=== PATIENT | female | born 1950 | race Caucasian/White ===

== ENCOUNTER → 2017-01-28 | Outpatient (CLI) | payer OTHER ==
--- NOTE | 2017-01-30 08:54 | MM ---
Reason for exam: screening (asymptomatic). Last mammogram was performed 1 year and 2 months ago. History: Patient history of other cancer. Benign stereotactic core biopsy of the right breast, March 20, 2001. Benign stereotactic core biopsy of the right breast, March 20, 2001. 2 core biopsies of the right breast. Physical Findings: A clinical breast exam by your physician is recommended on an annual basis and results should be correlated with mammographic findings. MG Screening Mammo w CAD Bilateral CC and MLO view(s) were taken. Prior study comparison: November 21, 2015, bilateral MG screening mammo w CAD. September 16, 2007, bilateral diagnostic digital mammog. The breast tissue is heterogeneously dense. This may lower the sensitivity of mammography. Finding: There are typically benign diffuse/scattered calcifications. No suspicious abnormality. Post biopsy change right upper outer quadrant. No significant changes in finding since November 21, 2015 and September 16, 2007. ASSESSMENT: Benign, BI-RAD 2 RECOMMENDATION: Routine screening mammogram of both breasts in 1 year.
== END | disposition home or self-care (01) ==
LOC: RADMAMWWP 10:03
PROVIDERS: ATTEND Family Medicine
DX: Z12.31 Encounter for screening mammogram for malignant neoplasm of breast (principal)

== ENCOUNTER → 2018-02-03 | Outpatient (CLI) | payer MEDICARE ==
--- NOTE | 2018-02-04 14:38 | MM ---
Reason for exam: screening (asymptomatic). Last mammogram was performed 1 year ago. History: Patient history of other cancer. Benign stereotactic core biopsy of the right breast, March 20, 2001. Benign stereotactic core biopsy of the right breast, March 20, 2001. 2 core biopsies of the right breast. Physical Findings: A clinical breast exam by your physician is recommended on an annual basis and results should be correlated with mammographic findings. MG Screening Mammo w CAD Bilateral CC and MLO view(s) were taken. Prior study comparison: January 28, 2017, bilateral MG screening mammo w CAD. November 21, 2015, bilateral MG screening mammo w CAD. The breast tissue is heterogeneously dense. This may lower the sensitivity of mammography. Stable benign calcifications. There is no discrete abnormality. No significant changes when compared with prior studies. ASSESSMENT: Benign, BI-RAD 2 RECOMMENDATION: Routine screening mammogram of both breasts in 1 year.
== END | disposition home or self-care (01) ==
LOC: RADMAMWWP 09:04
PROVIDERS: ATTEND Family Medicine
DX: Z12.31 Encounter for screening mammogram for malignant neoplasm of breast (principal)
CPT/HCPCS: 77067

== ENCOUNTER → 2019-02-10 | Outpatient (CLI) | payer MEDICARE ==
--- NOTE | 2019-02-11 10:17 | MM ---
Reason for exam: screening (asymptomatic). Last mammogram was performed 1 year ago. History: Patient is postmenopausal and history of other cancer. Benign stereotactic core biopsy of the right breast, March 20, 2001. Benign stereotactic core biopsy of the right breast, March 20, 2001. 2 core biopsies of the right breast. Physical Findings: A clinical breast exam by your physician is recommended on an annual basis and results should be correlated with mammographic findings. MG Screening Mammo w CAD Bilateral CC and MLO view(s) were taken. Prior study comparison: February 03, 2018, bilateral MG screening mammo w CAD. January 28, 2017, bilateral MG screening mammo w CAD. The breast tissue is heterogeneously dense. This may lower the sensitivity of mammography. Focal asymmetry central right breast 10.7cm from nipple. This finding is changed when compared with previous exams. ASSESSMENT: Incomplete: need additional imaging evaluation, BI-RAD 0 RECOMMENDATION: Special view mammogram of the right breast. If lesion persists on supplemental views, image directed ultrasound is recommended. [facility] will attempt to contact patient to return for supplemental views and ultrasound if indicated.
== END | disposition home or self-care (01) ==
LOC: RADMAMWWP 09:57
PROVIDERS: ATTEND Family Medicine
DX: Z12.31 Encounter for screening mammogram for malignant neoplasm of breast (principal); R92.8 Other abnormal and inconclusive findings on diagnostic imaging of breast
CPT/HCPCS: 77067

== ENCOUNTER → 2019-02-18 | Outpatient (CLI) | payer MEDICARE ==
--- NOTE | 2019-02-19 08:24 | MM ---
Reason for exam: additional evaluation requested from abnormal screening. Last mammogram was performed less than 1 month ago. History: Patient is postmenopausal and history of other cancer. Benign stereotactic core biopsy of the right breast, March 20, 2001. Benign stereotactic core biopsy of the right breast, March 20, 2001. 2 core biopsies of the right breast. Physical Findings: Nurse did not find any significant physical abnormalities on exam. MG 3D Work Up W/Cad RT Spot compression CC, spot compression MLO, and ML view(s) were taken of the right breast. Prior study comparison: February 10, 2019, bilateral MG screening mammo w CAD. February 03, 2018, bilateral MG screening mammo w CAD. The breast tissue is heterogeneously dense. This may lower the sensitivity of mammography. Benign appearing calcifications in the right breast. The previously seen abnormality resolves on additional views and appears as fibroglandular tissue compatible with summation. Right biopsy marker. These results were verbally communicated with the patient and result sheet given to the patient on 02/18/19. ASSESSMENT: Benign, BI-RAD 2 RECOMMENDATION: Return to routine screening mammogram schedule for both breasts.
== END | disposition home or self-care (01) ==
LOC: RADMAMWWP 14:19
PROVIDERS: ATTEND Family Medicine
DX: R92.8 Other abnormal and inconclusive findings on diagnostic imaging of breast (principal)
CPT/HCPCS: 77065; G0279; 77061

== ENCOUNTER → 2020-05-27 | Outpatient (CLI) | payer MEDICARE ==
--- NOTE | 2020-05-30 12:26 | MM ---
Reason for exam: screening (asymptomatic). Last mammogram was performed 1 year and 3 months ago. History: Patient is postmenopausal and history of other cancer. Benign stereotactic core biopsy of the right breast, March 20, 2001. Benign stereotactic core biopsy of the right breast, March 20, 2001. 2 core biopsies of the right breast. Physical Findings: A clinical breast exam by your physician is recommended on an annual basis and results should be correlated with mammographic findings. MG Screening Mammo w CAD Bilateral CC and MLO view(s) were taken. Prior study comparison: February 18, 2019, right breast MG 3d work up w/cad RT. February 10, 2019, bilateral MG screening mammo w CAD. The breast tissue is heterogeneously dense. This may lower the sensitivity of mammography. Stable scattered calcifications. There is no discrete abnormality. No significant changes when compared with prior studies. ASSESSMENT: Benign, BI-RAD 2 RECOMMENDATION: Routine screening mammogram of both breasts in 1 year.
== END | disposition home or self-care (01) ==
LOC: RADMAMWWP 11:11
PROVIDERS: ATTEND Family Medicine
DX: Z12.31 Encounter for screening mammogram for malignant neoplasm of breast (principal); Z78.0 Asymptomatic menopausal state
CPT/HCPCS: 77067

== ENCOUNTER 2020-06-23 17:57 | Emergency (ER) | payer MEDICARE ==
[2020-06-23 18:17] VITALS: BP 128/91; PULSE 118; RESP 18; TEMP 97.4
[2020-06-23] MEDS ORDERED: MECLIZINE 12.5 MG TAB PO STA (18:57)
[2020-06-23] MEDS ORDERED: SODIUM CHLORIDE 0.9% 1,000 ML IV STA (18:57)
[2020-06-23] MEDS ORDERED: ONDANSETRON 4 MG/2 ML VIAL IVP STA (19:18)
--- NOTE | 2020-06-23 19:20 | ED ---
General Adult HPI - General Chief complaint: ENT Stated complaint: Dizziness Time Seen by Provider: 06/23/20 18:17 Source: patient, RN notes reviewed Mode of arrival: ambulatory Limitations: no limitations - History of Present Illness Initial comments: 69-year-old female with a past medical history of hyperlipidemia presents to the emergency room for a chief complaint of dizziness. Patient reports that this afternoon she started to get dizzy when she was standing in line. This happened just prior to arrival. States the room started spinning and she became nauseous. Patient states she then presented to the emergency room. Her dizziness resolved but she remained nauseous and shaky. She reports that this is happened to her in the past. It happened about 2 months ago and she was treated for an ear infectionPatient has no other complaints at this time including shortness of breath, chest pain, abdominal pain, nausea or vomiting, headache, or visual changes. - Related Data Allergies Allergy/AdvReac Type Severity Reaction Status Date / Time cortisone AdvReac Unknown Verified 06/23/20 18:10 Penicillins AdvReac Unknown Verified 06/23/20 18:10 Review of Systems ROS Statement: Those systems with pertinent positive or pertinent negative responses have been documented in the HPI. ROS Other: All systems not noted in ROS Statement are negative. Past Medical History Past Medical History: Hyperlipidemia, Vascular Disorder History of Any Multi-Drug Resistant Organisms: None Reported Past Surgical History: No Surgical Hx Reported Past Psychological History: No Psychological Hx Reported Smoking Status: Never smoker Past Alcohol Use History: None Reported Past Drug Use History: None Reported General Exam Limitations: no limitations General appearance: alert, in no apparent distress Head exam: Present: atraumatic, normocephalic, normal inspection Eye exam: Present: normal appearance, PERRL, EOMI. Absent: scleral icterus, conjunctival injection, periorbital swelling ENT exam: Present: normal exam, mucous membranes moist Neck exam: Present: normal inspection. Absent: tenderness, meningismus, lymphadenopathy Respiratory exam: Present: normal lung sounds bilaterally. Absent: respiratory distress, wheezes, rales, rhonchi, stridor Cardiovascular Exam: Present: regular rate, normal rhythm, normal heart sounds. Absent: systolic murmur, diastolic murmur, rubs, gallop, clicks GI/Abdominal exam: Present: soft, normal bowel sounds. Absent: distended, tenderness, guarding, rebound, rigid Neurological exam: Present: alert, oriented X3, normal gait (No antalgic gait) Expanded Patient oriented to: Present: person, place, time Speech: Present: fluid speech Cranial nerves: Tongue Deviation: Normal, Nystagmus: Normal, Facial Sensation: Normal Cerebellar function: Romberg: Normal Upper motor neuron: Pronator Drift: Normal Sensory exam: Upper Extremity Light Touch: Normal, Upper Extremity Pin Prick: Normal, Lower Extremity Light Touch: Normal, Lower Extremity Pin Prick: Normal Motor strength exam: RUE: 5, LUE: 5, RLE: 5, LLE: 5 Course Vital Signs 06/23/20 18:11 Temperature 97.4 F L Pulse Rate 118 H Respiratory 18 Rate Blood Pressure 128/91 O2 Sat by Pulse 98 Oximetry EKG Findings - EKG Comments: EKG Findings:: Normal sinus rhythm, ventricular rate 84, UT interval 172, QTC 486 Medical Decision Making - Medical Decision Making Vitals are stable. Initially patient tachycardic with a heart rate of 118 however likely related to anxiety. Heart rate improved to the 80s throughout her stay. Patient ambulatory on arrival. Gait is normal. CBC CMP is unremarkable. Patient does have some dehydration noted with a BUN to creatinine ratio of 22 and 1+ ketones in the urine, patient given fluids. CT brain was obtained which showed no acute process. Chest x-ray was unremarkable. Patient was given fluids Zofran and Antivert and did have significant improvement in symptoms. States she feels back to normal at this time. Patient states her right ear has been full on and off for the past couple months and her doctor thought this was related. We will refer her to ENT. We will also prescribe meclizine. She will return for any worsening symptoms which were discussed. - Lab Data Result diagrams: 06/23/20 19:26 06/23/20 19:26 Lab Results 06/23/20 06/23/20 06/23/20 Range/Units 19:26 19:26 19: WBC 11.2 H (3.8-10.6) k/uL RBC 4.75 (3.80-5.40) m/uL Hgb 14.6 (11.4-16.0) gm/dL Hct 45.3 (34.0-46.0) % MCV 95.4 (80.0-100.0) fL MCH 30.7 (25.0-35.0) pg MCHC 32.2 (31.0-37.0) g/dL RDW 13.2 (11.5-15.5) % Plt Count 309 (150-450) k/uL MPV 7.3 Neutrophils % 61 % Lymphocytes % 29 % Monocytes % 6 % Eosinophils % 2 % Basophils % 1 % Neutrophils # 6.8 (1.3-7.7) k/uL Lymphocytes # 3.3 (1.0-4.8) k/uL Monocytes # 0.6 (0-1.0) k/uL Eosinophils # 0.2 (0-0.7) k/uL Basophils # 0.1 (0-0.2) k/uL Sodium 139 (137-145) mmol/L Potassium 4.0 (3.5-5.1) mmol/L Chloride 104 (98-107) mmol/L Carbon Dioxide 23 (22-30) mmol/L Anion Gap 12 mmol/L BUN 19 H (7-17) mg/dL Creatinine 0.86 (0.52-1.04) mg/dL Est GFR (CKD-EPI)AfAm 82 (>60 ml/min/1.73 sqM) Est GFR (CKD-EPI)NonAf 71 (>60 ml/min/1.73 sqM) Glucose 125 H (74-99) mg/dL Calcium 9.6 (8.4-10.2) mg/dL Total Bilirubin 0.4 (0.2-1.3) mg/dL AST 35 (14-36) U/L ALT 27 (4-34) U/L Alkaline Phosphatase 109 (38-126) U/L Troponin I <0.012 (0.000-0.034) ng/mL Total Protein 7.6 (6.3-8.2) g/dL Albumin 4.4 (3.5-5.0) g/dL Urine Color Urine Appearance (Clear) Urine pH (5.0-8.0) Ur Specific [place] (1.001-1.035) Urine Protein (Negative) Urine Glucose (UA) (Negative) Urine Ketones (Negative) Urine Blood (Negative) Urine Nitrite (Negative) Urine Bilirubin (Negative) Urine Urobilinogen (<2.0) mg/dL Ur Leukocyte Esterase (Negative) 06/23/20 Range/Units 19:35 WBC (3.8-10.6) k/uL RBC (3.80-5.40) m/uL Hgb (11.4-16.0) gm/dL Hct (34.0-46.0) % MCV (80.0-100.0) fL MCH (25.0-35.0) pg MCHC (31.0-37.0) g/dL RDW (11.5-15.5) % Plt Count (150-450) k/uL MPV Neutrophils % % Lymphocytes % % Monocytes % % Eosinophils % % Basophils % % Neutrophils # (1.3-7.7) k/uL Lymphocytes # (1.0-4.8) k/uL Monocytes # (0-1.0) k/uL Eosinophils # (0-0.7) k/uL Basophils # (0-0.2) k/uL Sodium (137-145) mmol/L Potassium (3.5-5.1) mmol/L Chloride (98-107) mmol/L Carbon Dioxide (22-30) mmol/L Anion Gap mmol/L BUN (7-17) mg/dL Creatinine (0.52-1.04) mg/dL Est GFR (CKD-EPI)AfAm (>60 ml/min/1.73 sqM) Est GFR (CKD-EPI)NonAf (>60 ml/min/1.73 sqM) Glucose (74-99) mg/dL Calcium (8.4-10.2) mg/dL Total Bilirubin (0.2-1.3) mg/dL AST (14-36) U/L ALT (4-34) U/L Alkaline Phosphatase (38-126) U/L Troponin I (0.000-0.034) ng/mL Total Protein (6.3-8.2) g/dL Albumin (3.5-5.0) g/dL Urine Color Yellow Urine Appearance Clear (Clear) Urine pH 8.0 (5.0-8.0) Ur Specific [place] 1.019 (1.001-1.035) Urine Protein Trace H (Negative) Urine Glucose (UA) Negative (Negative) Urine Ketones 1+ H (Negative) Urine Blood Negative (Negative) Urine Nitrite Negative (Negative) Urine Bilirubin Negative (Negative) Urine Urobilinogen <2.0 (<2.0) mg/dL Ur Leukocyte Esterase Negative (Negative) Disposition Clinical Impression: Dizziness Disposition: HOME SELF-CARE Condition: Good Instructions (If sedation given, give patient instructions): Vertigo (ED) Additional Instructions: Please take Antivert over the next few days. Follow-up with your doctor as well as ENT. If you have any worsening symptoms return to the emergency room. Is patient prescribed a controlled substance at d/c from ED?: No Referrals: Jorge Diallo Jr, DO [Primary Care Provider] - 1-2 days Rommel Meredith DO [Doctor of Osteopathic Medicine] - 1-2 days Time of Disposition: 21:40
[2020-06-23 19:41] LABS: Basophils # (A) 0.1 k/uL (0-0.2); Basophils % (A) 1 %; Eosinophils # (A) 0.2 k/uL (0-0.7); Eosinophils % (A) 2 %; HCT 45.3 % (34.0-46.0); HGB 14.6 gm/dL (11.4-16.0); Lymphocytes # (A) 3.3 k/uL (1.0-4.8); Lymphocytes % (A) 29 %; MCH 30.7 pg (25.0-35.0); MCHC 32.2 g/dL (31.0-37.0); MCV 95.4 fL (80.0-100.0); Mean Platelet Volume 7.3; Monocytes # (A) 0.6 k/uL (0-1.0); Monocytes % (A) 6 %; Neutrophils # (A) 6.8 k/uL (1.3-7.7); Neutrophils % (A) 61 %; Platelet Count 309 k/uL (150-450); RBC 4.75 m/uL (3.80-5.40); RDW 13.2 % (11.5-15.5); WBC 11.2 k/uL (3.8-10.6)
[2020-06-23 19:47] LABS: Appearance,Urine Clear (Clear); Bilirubin,Urine Negative (Negative); Blood,Urine Negative (Negative); Color,Urine Yellow; Glucose,Urine (UA) Negative (Negative); Ketones,Urine 1+ (Negative); Leukocyte Esterase,Urine Negative (Negative); Nitrite,Urine Negative (Negative); Protein,Urine Trace (Negative); Specific Gravity,Urine 1.019 (1.001-1.035); Urobilinogen,Urine <2.0 mg/dL (<2.0)
[2020-06-23 19:49] LABS: Albumin 4.4 g/dL (3.5-5.0); Calcium 9.6 mg/dL (8.4-10.2); Total Bilirubin 0.4 mg/dL (0.2-1.3); Total Protein 7.6 g/dL (6.3-8.2)
--- NOTE | 2020-06-23 21:21 | CT ---
EXAMINATION: CT brain wo con DATE AND TIME: 06/23/2020 8:29 PM CLINICAL INDICATION: PHH; dizzy TECHNIQUE: Standard departmental protocol.; 1104.4; COMPARISON: None. FINDINGS: The calvarium is intact. There is no intracranial hemorrhage. There is no intracranial mass or mass effect. No definite new intra-axial or extra-axial attenuation defect. The paranasal sinuses, middle ear cavities, and mastoid sinus air cells are clear. The orbits are unremarkable. IMPRESSION: NO ACUTE PROCESS.
--- NOTE | 2020-06-23 21:23 | XR ---
EXAMINATION: XR chest 2V DATE AND TIME: 06/23/2020 8:27 PM CLINICAL INDICATION: PHH; dizzy TECHNIQUE: Departmental protocol COMPARISON: None FINDINGS: The lungs are clear. The pleural spaces are negative. The cardiac silhouette is not enlarged. The remainder of the mediastinal silhouette is unremarkable. The skeletal structures and soft tissues are negative for acute findings. IMPRESSION: No definite acute process.
== END 2020-06-23 21:56 | disposition home or self-care (01) ==
LOC: EC 17:57
DX: R42 Dizziness and giddiness (principal); E78.5 Hyperlipidemia, unspecified; Z88.0 Allergy status to penicillin
CPT/HCPCS: 36415; 93005; 80053; 84484; 85025; 81003; 71046; 70450; 99285; 96374; 96361; J2405

== ENCOUNTER → 2021-06-02 | Outpatient (CLI) | payer MEDICARE ==
--- NOTE | 2021-06-06 10:40 | MM ---
Reason for exam: screening (asymptomatic). Last mammogram was performed 1 year ago. History: Patient is postmenopausal and history of other cancer. Benign stereotactic core biopsy of the right breast, March 20, 2001. Benign stereotactic core biopsy of the right breast, March 20, 2001. 2 core biopsies of the right breast. Physical Findings: A clinical breast exam by your physician is recommended on an annual basis and results should be correlated with mammographic findings. MG Screening Mammo w CAD Bilateral CC and MLO view(s) were taken. Prior study comparison: May 27, 2020, bilateral MG screening mammo w CAD. February 18, 2019, right breast MG 3d work up w/cad RT. The breast tissue is heterogeneously dense. This may lower the sensitivity of mammography. There are benign appearing round calcifications bilaterally. Previous mammotome biopsy in the right breast. There is no discrete abnormality. ASSESSMENT: Benign, BI-RAD 2 RECOMMENDATION: Routine screening mammogram of both breasts in 1 year.
== END | disposition home or self-care (01) ==
LOC: RADMAMWWP 12:44
PROVIDERS: ATTEND Family Medicine
DX: Z12.31 Encounter for screening mammogram for malignant neoplasm of breast (principal); Z78.0 Asymptomatic menopausal state
CPT/HCPCS: 77067

== ENCOUNTER → 2022-06-21 | Outpatient (CLI) | payer MEDICARE ==
--- NOTE | 2022-06-22 08:11 | MM ---
Reason for Exam: Screening (asymptomatic). Last mammogram was performed 1 year(s) and 1 month(s) ago. Patient History: Menarche at age 13. First Full-Term at age 21. Postmenopausal. Other cancer. Core Biopsy on the Right side. Core Biopsy on the Right side. 03/20/2001, Benign Stereotactic Core Biopsy on the right side. 03/20/2001, Benign Stereotactic Core Biopsy on the right side. Risk Values: Jaylene 5 year model risk: 2.0%. NCI Lifetime model risk: 6.3%. Prior Study Comparison: 02/18/2019 Right Diagnostic Mammogram, [facility]. 05/27/2020 Bilateral Screening Mammogram, [facility]. 06/02/2021 Bilateral Screening Mammogram, [facility]. Tissue Density: The breast tissue is heterogeneously dense. This may lower the sensitivity of mammography. Findings: Analyzed By CAD. Benign-appearing calcifications. There is no suspicious group of microcalcifications or new suspicious mass in either breast. Overall Assessment: Benign, BI-RAD 2 Management: Screening Mammogram of both breasts in 1 year. A clinical breast exam by your physician is recommended on an annual basis and results should be correlated with mammographic findings. [facility] will attempt to contact patient to return for supplemental views and ultrasound if indicated. Electronically signed and approved by: Obed Blum DO
== END | disposition home or self-care (01) ==
LOC: RADMAMWWP 13:07
PROVIDERS: ATTEND Family Medicine
DX: Z12.31 Encounter for screening mammogram for malignant neoplasm of breast (principal); Z78.0 Asymptomatic menopausal state
CPT/HCPCS: 77067

== ENCOUNTER → 2023-06-24 | Outpatient (CLI) | payer MEDICARE ==
--- NOTE | 2023-06-27 18:34 | MM ---
Reason for Exam: Screening (asymptomatic). Last screening mammogram was performed 12 month(s) ago. Patient History: Menarche at age 13. First Full-Term at age 21. Postmenopausal. Core Biopsy on the Right side. Core Biopsy on the Right side. 03/20/2001, Benign Stereotactic Core Biopsy on the right side. 03/20/2001, Benign Stereotactic Core Biopsy on the right side. Risk Values: Jaylene 5 year model risk: 2.1%. NCI Lifetime model risk: 6.0%. Prior Study Comparison: 05/27/2020 Bilateral Screening Mammogram, [facility]. 06/02/2021 Bilateral Screening Mammogram, [facility]. 06/21/2022 Bilateral MG screening mammo w CAD, [facility]. Tissue Density: The breasts are heterogeneously dense, which may obscure small masses. Findings: Analyzed By CAD. Focal asymmetry posterior 12:00 right breast for which further evaluation is recommended. Other areas of asymmetric density on both sides remain unchanged. Overall Assessment: Incomplete: need additional imaging evaluation, BI-RAD 0 Management: Special View Mammogram of the right breast. Diagnostic Breast Ultrasound of the right breast. . [facility] will attempt to contact patient to return for supplemental views and ultrasound if indicated. Electronically signed and approved by: Misael Gallegos M.D. Radiologist
== END | disposition home or self-care (01) ==
LOC: RADMAMWWP 13:46
PROVIDERS: ATTEND Family Medicine
DX: Z12.31 Encounter for screening mammogram for malignant neoplasm of breast (principal); Z78.0 Asymptomatic menopausal state
CPT/HCPCS: 77063; 77067

== ENCOUNTER → 2023-07-01 | Outpatient (CLI) | payer MEDICARE ==
--- NOTE | 2023-07-01 10:49 | MM ---
Reason for Exam: Additional evaluation requested from abnormal screening. Last screening mammogram was performed less than 1 month ago. Patient History: Menarche at age 13. First Full-Term at age 21. Postmenopausal. Core Biopsy on the Right side. Core Biopsy on the Right side. 03/20/2001, Benign Stereotactic Core Biopsy on the right side. 03/20/2001, Benign Stereotactic Core Biopsy on the right side. Risk Values: Jaylene 5 year model risk: 2.1%. NCI Lifetime model risk: 6.0%. Prior Study Comparison: 02/10/2019 Bilateral Screening Mammogram, [facility]. 02/18/2019 Right Diagnostic Mammogram, [facility]. 05/27/2020 Bilateral Screening Mammogram, [facility]. 06/02/2021 Bilateral Screening Mammogram, [facility]. 06/21/2022 Bilateral MG screening mammo w CAD, [facility]. 06/24/2023 Bilateral MG 3D screening mammo w/cad, [facility]. Tissue Density: Right: The breasts are heterogeneously dense, which may obscure small masses. Findings: Analyzed By CAD. Slightly improved but persistent 8 mm spiculated nodule 12:00 position right breast approximately 16 cm from the nipple. Ultrasound is recommended. Overall Assessment: Incomplete: need additional imaging evaluation, BI-RAD 0 Management: Diagnostic Breast Ultrasound of the right breast. . Results were given to the patient verbally at the time of exam. Patient should continue monthly self-breast exams. A clinical breast exam by your physician is recommended on an annual basis. This exam should not preclude additional follow-up of suspicious palpable abnormalities. Note on Jaylene scores and lifetime risk: 1. A Jaylene score greater than 3% is considered moderate risk. If this is the case, consider specialist referral to assess eligibility for a risk reducing agent. 2. If overall lifetime risk for the development of breast cancer is 20% or higher, the patient may qualify for future screening with alternating mammogram and breast MRI. Electronically signed and approved by: Kwabena Terrazas M.D. Radiologis
--- NOTE | 2023-07-03 08:03 | USB ---
Reason for Exam: Additional evaluation requested from abnormal screening. Patient History: Menarche at age 13. First Full-Term at age 21. Postmenopausal. Core Biopsy on the Right side. Core Biopsy on the Right side. 03/20/2001, Benign Stereotactic Core Biopsy on the right side. 03/20/2001, Benign Stereotactic Core Biopsy on the right side. Risk Values: Jaylene 5 year model risk: 2.1%. NCI Lifetime model risk: 6.0%. Technique: Method: Targeted. Prior Study Comparison: 06/02/2021 Bilateral Screening Mammogram, [facility]. 06/21/2022 Bilateral MG screening mammo w CAD, [facility]. 06/24/2023 Bilateral MG 3D screening mammo w/cad, [facility]. Findings: The upper section of the breast of the left breast, the axilla of the right breast and the retroareolar of the right breast were scanned. Small spiculated mass at the right 1:00 position 16 cm from the nipple measures approximately 5 mm with posterior acoustic shadowing. This lesion is suspicious for malignancy and tissue diagnosis is recommended. No additional lesions seen within the imaged field. No axillary adenopathy appreciated. Overall Assessment: Highly suggestive of malignancy, BI-RAD 5 Management: Ultrasound-Guided Core Biopsy of the right breast. A clinical breast exam by your physician is recommended on an annual basis and results should be correlated with mammographic findings. This exam should not preclude additional follow-up of suspicious palpable abnormalities. Results were given to the patient verbally at the time of exam. Electronically signed and approved by: Kwabena Terrazas M.D. Radiologis
== END | disposition home or self-care (01) ==
LOC: RADMAMWWP 10:21
PROVIDERS: ATTEND Family Medicine
DX: R92.331 Mammographic heterogeneous density, right breast (principal); Z78.0 Asymptomatic menopausal state
CPT/HCPCS: 77065; 76642; G0279; 77061

== ENCOUNTER → 2023-07-10 | Day surgery (SDC) | payer MEDICARE ==
--- NOTE | 2023-07-10 12:16 | USB ---
Risk Values: Jaylene 5 year model risk: 2.1%. NCI Lifetime model risk: 6.0%. Prior Study Comparison: 06/21/2022 Bilateral MG screening mammo w CAD, [facility]. 06/24/2023 Bilateral MG 3D screening mammo w/cad, [facility]. 07/01/2023 Right MG 3D work up w/cad RT, [facility]. Pathology Description: Location: 1 o'clock. Marker Left Behind. Needle Type: Mammotome Cores: 5 Skin Nicks: 1 The procedure of ultrasound guided core biopsy was explained to the patient. Benefits, alternatives, and risks were discussed. An informed consent was then obtained. The patient was placed in supine positioning for imaging and for the procedure. The overlying skin was prepped and draped in usual sterile fashion. Lidocaine buffered with bicarbonate was used as anesthetic into the skin and subcutaneous tissue up to area of concern in the right breast at 1:00 16 cm from the nipple.. A amparo was made with surgical scalpel. Under ultrasound guidance, a 12-gauge vacuum assisted biopsy gun device was used to obtain 5 core samples. Following this, a biopsy clip was left in lesion. The patient tolerated the procedure well without any immediate complication. The patient was kept in the radiology department for short stay after the procedure and then discharged home in stable condition. Postprocedure mammogram: The patient was transferred to mammography for physician ordered post procedure mammogram for clip placement verification. Impression: Successful, uncomplicated ultrasound guided core biopsy of area of concern in the right breast, full pathology results to follow. Pathology Results: Results pending. Electronically signed and approved by: Obed Blum DO
--- NOTE | 2023-07-16 09:02 | MM ---
Reason for Exam: Post Procedure Mammogram. Last screening mammogram was performed less than 1 month ago. Patient History: Menarche at age 13. First Full-Term at age 21. Postmenopausal. Core Biopsy on the Right side. Core Biopsy on the Right side. 03/20/2001, Benign Stereotactic Core Biopsy on the right side. 03/20/2001, Benign Stereotactic Core Biopsy on the right side. Risk Values: Jaylene 5 year model risk: 2.1%. NCI Lifetime model risk: 6.0%. Prior Study Comparison: 06/21/2022 Bilateral MG screening mammo w CAD, [facility]. 06/24/2023 Bilateral MG 3D screening mammo w/cad, [facility]. 07/01/2023 Right MG 3D work up w/cad RT, [facility]. Tissue Density: Right: The breasts are heterogeneously dense, which may obscure small masses. Overall Assessment: Known biopsy proven malignancy, BI-RAD 6 Management: Surgical Consultation of the right breast. Electronically signed and approved by: Obed Blum DO
== END ==
LOC: RADUSWWP 10:08
PROVIDERS: ATTEND Family Medicine
DX: C50.211 Malignant neoplasm of upper-inner quadrant of right female breast (principal); Z78.0 Asymptomatic menopausal state
CPT/HCPCS: 88305; 88342; 88341; 77065; 19083; A4648

== ENCOUNTER → 2023-07-15 | Outpatient (CLI) | payer MEDICARE ==
--- NOTE | 2023-07-15 11:20 | MM ---
Reason for Exam: Additional evaluation requested from prior study. Last screening mammogram was performed less than 1 month ago. Patient History: Menarche at age 13. First Full-Term at age 21. Postmenopausal. Core Biopsy on the Right side. Core Biopsy on the Right side. 03/20/2001, Benign Stereotactic Core Biopsy on the right side. 03/20/2001, Benign Stereotactic Core Biopsy on the right side. Risk Values: Jaylene 5 year model risk: 2.1%. NCI Lifetime model risk: 6.0%. Prior Study Comparison: 02/10/2019 Bilateral Screening Mammogram, [facility]. 05/27/2020 Bilateral Screening Mammogram, [facility]. 06/21/2022 Bilateral MG screening mammo w CAD, [facility]. 06/24/2023 Bilateral MG 3D screening mammo w/cad, [facility]. 07/01/2023 Right MG 3D work up w/cad RT, [facility]. Tissue Density: Right: The breasts are heterogeneously dense, which may obscure small masses. Findings: Analyzed By CAD. The coil clip is located at the 12:00 position, and on the MLO view, corresponds to the site of the initially detected finding. This indicates that the site biopsied under ultrasound is the mammographic correlate. Overall Assessment: Suspicious, BI-RAD 4 Management: Surgical Consultation of the right breast. Await biopsy results. Patient will be given results tomorrow. Electronically signed and approved by: Misael Gallegos M.D. Radiologist
== END | disposition home or self-care (01) ==
LOC: RADMAMWWP 10:33
PROVIDERS: ATTEND Family Medicine
DX: R92.331 Mammographic heterogeneous density, right breast (principal); Z78.0 Asymptomatic menopausal state

== ENCOUNTER 2023-08-16 06:55 | Day surgery (SDC) | payer MEDICARE ==
[2023-08-13 15:26] VITALS: BMI 36.6
[~2023-08-16 06:55] MED LIST: DEXAMETHASONE SOD PHOSPHATE 4 MG/ML 1 ML VIAL IV ONE; LIDOCAINE 1% (10MG/ML) FOR IV START INTRADERMA PRN
[2023-08-16] MEDS ORDERED: HYDROmorphone 0.5 MG/0.5 ML SYRINGE IVP PRN (07:00)
[2023-08-16] MEDS ORDERED: MIDAZOLAM 2 MG/2 ML VIAL IV PRN (07:00)
[2023-08-16] MEDS ORDERED: fentaNYL (PF) 50 MCG/ML 2 ML AMP IV PRN (07:00)
--- NOTE | 2023-08-16 07:32 | P.HPADDEND ---
H&P Addendum H&P Addendum Date: 08/16/23 Please refer to history and physical from 07/24. Patient here today with recently diagnosed stage I right breast cancer. Patient and I discussed the results of our conversation at our multidisciplinary tumor conference. She is interested in breast conservation. Will proceed with right breast wire loca lization lumpectomy with sentinel lymph node biopsy/injection. Risks of bleeding, infection, scarring, dimpling, numbness, poor healing, seroma, nerve injury, lymphedema, recurrence, possible need for further surgeries reviewed. Patient understands and wishes to proceed.
--- NOTE | 2023-08-16 07:33 | P.NAPBC ---
NAPBC Queries - NAPBC Queries Was patient's case review presented at [facility] tumor board? If no, comment.: Yes Was patient's pathology reviewed at [facility]? If no, comment.: Yes Was breast conservation surgery offered? If no, comment.: Yes Was sentinel node biopsy offered? If no, comment.: Yes Was diagnosis confirmed by percutaneous core biopsy? If no, comment.: Yes Is patient mastectomy patient?: No Was a preop referral to reconstructive surgeon offered?: Yes Clinical Stage: 1
[2023-08-16] MEDS: LACTATED RINGERS 1,000 ML IV SCH (07:45)
[2023-08-16] MEDS: ONDANSETRON 4 MG/2 ML VIAL IVP ONE (07:46)
[2023-08-16] MEDS: ACETAMINOPHEN TAB 500 MG TAB PO PRN (07:46)
[2023-08-16] MEDS: ALPRAZolam 0.25 MG TAB PO STA (07:47)
[2023-08-16] MEDS: IV FLUID CONTINUATION 1,000 ML IV ONE ×4 (07:51→12:54)
[2023-08-16] MEDS: CHLOROPROCAINE 3% 30 MG/ML 20 ML VIAL SQ ONE (08:54)
[2023-08-16] MEDS: HEPARIN SODIUM,PORCINE 5,000 UNIT/ML 1 ML VIAL SQ PRN (09:35)
[2023-08-16] MEDS ORDERED: fentaNYL (PF) 50 MCG/ML 2 ML AMP ONE (09:50)
[2023-08-16] MEDS ORDERED: MIDAZOLAM 2 MG/2 ML VIAL ONE (09:50)
[2023-08-16] MEDS ORDERED: HYDROmorphone (PF) 1 MG/ML ONE (09:50)
[2023-08-16] MEDS ORDERED: PROPOFOL 10 MG/ML 20 ML VIAL IV ONE (09:50)
[2023-08-16] MEDS: METHYLENE BLUE 50 MG/10 ML AMPUL MISCELLANE ONE ×2 (10:12)
[2023-08-16] MEDS ORDERED: traMADol 50 MG TAB PO STA (11:46)
--- NOTE | 2023-08-16 11:53 | P.OP ---
Date of Procedure: 08/16/23 Procedure(s) Performed: PREOPERATIVE DIAGNOSIS: Right breast cancer POSTOPERATIVE DIAGNOSIS: Same PROCEDURE: Right Breast wire localization lumpectomy with sentinel lymph node biopsy SURGEON: Marc EBL: Minimal ANESTHESIA: General COMPLICATIONS: None OPERATIVE PROCEDURE: Patient was placed on the operating room table in the supine position. 2 mL of methylene blue was injected into the subareolar space. The breast was then massaged for 5 minutes. The breast was prepped and draped in usual sterile fashion. The right axilla was addressed at that time. The hot spot in the right axilla was identified. A small curvilinear incision was made using the scalpel. Dissection down through the subcutaneous tissues took place using electrocautery. Small vessels and lymphatics were clipped. Using the neoprobe I identified a total of 3 sentinel lymph nodes. 1 of these was blue in color. These had benign exam characteristics. These were all removed and sent to pathology for permanent sectioning. The surgical site was inspected and no bleeding was seen. Gelfoam powder was utilized at the operative bed. The subcutaneous tissues were closed using 3-0 Vicryl sutures. The skin was closed using 4-0 Monocryl sutures. The wire entrance site was then addressed. This was present at the 12:00 location. A curvilinear incision was made adjacent to the wire entrance site. I followed the wire down into the breast tissue. An adequate lumpectomy specimen then took place around the wire. Margins of 1.5-2 cm worth attempted to be achieved. The initial specimen was then painted the appropriate 6 colors. Clips were used to identify the lumpectomy cavity. The clip was confirmed to be within the lumpectomy specimen by radiology. The subcutaneous tissues were closed using 3-0 Vicryl sutures. The skin was closed using a running 4-0 Monocryl stitch. Skin glue was then applied. DISPOSITION: Stable to recovery room
[2023-08-16 11:59] VITALS: TEMP 97.2
[2023-08-16] MEDS ORDERED: ACETAMINOPHEN TAB 325 MG TAB PO SCH (12:00)
[2023-08-16] MEDS: droPERidol 5 MG/2 ML VIAL IVP ONE (12:11)
[2023-08-16 13:54] VITALS: BP 116/71; PULSE 74; RESP 18
--- NOTE | 2023-08-16 18:35 | NM ---
EXAMINATION TYPE: NM sentinel node injection DATE OF EXAM: 08/16/2023 COMPARISON: NONE CLINICAL INDICATION: Female, 72 years old with history of C50.911 RIGHT BREAST CANCER; TECHNIQUE AND FINDINGS: The procedure of sentinel lymph node injection was explained to the patient. The benefits, alternatives, and risks were discussed. An informed consent was then obtained. Overlying skin is cleaned with sterile alcohol. Following this, 486 uCi Tc99m Tilmanocept was inject ed in the upper outer aspect of the right nipple intradermally. The patient tolerated the procedure well without any immediate complication. The patient was kept in the radiology department for short stay after the procedure and then taken to surgery for surgical p rocedure what is presumed intraoperative gamma probe will be used for sentinel lymph node detection. IMPRESSION: Right breast radiotracer injection for sentinel node localization as above.
[2023-08-17] MEDS ORDERED: MELOXICAM 7.5 MG TAB PO SCH (09:00)
--- NOTE | 2023-08-23 13:58 | MM ---
Pathology Description: Approach: CC FA Needle Type: 9 cm Kopan no problems/The procedure of needle localization with wire placement and than surgical excision was explained to the patient. Benefits, alternatives, and risks were discussed. An informed consent was then obtained. The small spiculated density with coil clip is identified in the posterior 12:00 right breast. The shortest pathway for procedure was chosen. Shortest pathway was a superior approach. The overlying skin was prepped and draped in usual sterile fashion. The patient has a lidocaine allergy. 3% Nesacaine was utilized into the skin and subcutaneous tissue up to the level of area of concern. A 9 cm Kopan's needle was used. It was placed via a superior approach under mammographic guidance. Subsequent 90 degrees mammogram show the needle to be in satisfactory position relative to the targeted area. At this point, wire was placed and the needle was withdrawn. The wire was fixed to patient's skin. Images were marked for surgeon. The patient tolerated the procedure well without any immediate complication. The patient was kept in the radiology department for short stay after the procedure and then taken to surgery for surgical excision. Targeted clip, density, and wire are identified in specimen mammogram. The patient was kept in hospital for short stay after the procedure and then discharged home in stable condition. IMPRESSION: Successful, uncomplicated needle localization with wire placement and surgical excision of biopsy-proven small 12:00 right breast carcinoma, full pathology results to follow. Pathology Results: Result: Malignant, Invasive ductal carcinoma. Pathology and radiology were reviewed. Findings are concordant. A. LYMPH NODES, RIGHT SENTINEL, DISSECTION: Two lymph nodes, each negative for metastatic carcinoma (see comment and cancer protocol). B. RIGHT BREAST, LUMPECTOMY: Invasive ductal carcinoma, grade 2 (see surgical pathology cancer case summary and comment). All margins negative for carcinoma. Overall Assessment: Malignant Management: Surgical Consultation of the right breast. Electronically signed and approved by: Misael Gallegos M.D. Radiologist
== END 2023-08-16 14:30 | disposition home or self-care (01) ==
LOC: OR 06:55
PROVIDERS: ATTEND Surgery
DX: C50.911 Malignant neoplasm of unspecified site of right female breast (principal)
CPT/HCPCS: 88342; 88307; 88341; 76098; 19281; 38792; 19301; 38500; A9520; J2250; J1644; J0690; J2405; J3010; J1170; J2704; Q9968; J1790; J2401

== ENCOUNTER → 2023-09-26 | Outpatient (CLI) | payer MEDICARE ==
--- NOTE | 2023-09-26 23:52 | BD ---
EXAMINATION TYPE: Axial Bone Density DATE OF EXAM: 09/26/2023 CLINICAL HISTORY: 72 years old Female. ICD-10 CODE: C50.211 BREAST CANCER Height: 66 Weight: 241.4 FRAX RISK QUESTIONS: Alcohol (3 or more units per day): no Family History (Parent hip fracture): no Glucocorticoids (More than 3mos): no (Ex: prednisone, prednisolone, methylprednisolone, dexamethasone, and hydrocortisone). History of Fracture in Adulthood: no Secondary Osteoporosis: 1. Type 1 Diabetes: no 2. Hyperthyroidism: no 3. Menopause before 45: no 4. Malnutrition: no 5. Chronic liver disease: no Rheumatoid Arthritis: no Current Tobacco Use: no RISK FACTORS HISTORY OF: Surgery to Spine/Hip(right/left)/Wrist (right/left): no MEDICATIONS: Thyroid Medications: synthroid How Lon years EXAM MEASUREMENTS: Bone mineral densitometry was performed using the [employer] System. Bone mineral density as measured about the Lumbar spine is: ----- L1-L4(G/cm2): 1.266 T Score Values are as follows: ----- L1: 0.3 ----- L2: 0.2 ----- L3: 1.6 ----- L4: 0.7 ----- L1-L4: 0.7 Z Score Values are as follows: ----- L1: 0.8 ----- L2: 0.7 ----- L3: 2.1 ----- L4: 1.0 ----- L1-L4: 1.2 Bone mineral density : baseline Bone mineral density about the R hip (g/cm2): 1.206 Bone mineral density about the L hip (g/cm2): 1.345 T Score values are as follows: -----R Neck: 0.7 -----L Neck: 1.5 -----R Total: 1.6 -----L Total: 2.7 Z Score values are as follows: -----R Neck: 1.7 -----L Neck: 2.5 -----R Total: 2.2 -----L Total: 3.3 Bone mineral density : baseline FRAX%s: The graph provided illustrates a 5.5% chance for a major osteoporotic fx and a 0.2% chance fo r the hips probability for fx in 10 years time. IMPRESSION: Normal (Values between +1 and -1 indicate normal bone mass). Consider repeating this study in 5 year s or sooner if there is some new clinical indication. NOTE: T-SCORE=SD OF THE YOUNG ADULT MEAN.
== END | disposition home or self-care (01) ==
LOC: RADBDWWP 12:39
PROVIDERS: ATTEND Internal Medicine Hematology & Oncology
DX: C50.211 Malignant neoplasm of upper-inner quadrant of right female breast (principal); M12.9 Arthropathy, unspecified; E78.5 Hyperlipidemia, unspecified; Z71.3 Dietary counseling and surveillance
CPT/HCPCS: 77080

== ENCOUNTER 2024-03-24 08:46 | Day surgery (SDC) | payer MEDICARE ==
[2024-03-18 15:58] VITALS: BMI 39.2
[~2024-03-24 08:46] MED LIST changes: -DEXAMETHASONE SOD PHOSPHATE 4 MG/ML 1 ML VIAL IV ONE; +LACTATED RINGERS 1,000 ML IV SCH; -LIDOCAINE 1% (10MG/ML) FOR IV START INTRADERMA PRN
[2024-03-24 09:21] VITALS: TEMP 98.8
[2024-03-24] MEDS: SODIUM CHLORIDE 0.9% 1,000 ML IV ONE (09:37)
[2024-03-24] MEDS ORDERED: PROPOFOL 10 MG/ML 20 ML VIAL IV ONE (10:07)
--- NOTE | 2024-03-24 10:12 | P.GSHP ---
History of Present Illness H&P Date: 03/24/24 Chief Complaint: Colon cancer screening high risk 73-year-old female here for colonoscopy. Last colonoscopy 5 to 6 years ago. Patient with family history of colon cancer in her father. Last colonoscopy was normal. No bowel complaints. Past Medical History Past Medical History: Cancer, Hyperlipidemia, Osteoarthritis (OA), Thyroid Disorder Additional Past Medical History / Comment(s): basal cell skin cancer, breast cancer RT, lumpectomy, one week radiation therapy ended dec 02 History of Any Multi-Drug Resistant Organisms: None Reported Past Surgical History: Tubal Ligation Additional Past Surgical History / Comment(s): Ovarian cyst removal, sebaceous cyst on back removed, basal cell cancer removed from left arm, right breast biopsy x2 2001-benign , colonoscopy Past Anesthesia/Blood Transfusion Reactions: No Reported Reaction Additional Past Anesthesia/Blood Transfusion Reaction / Comment(s): hard time waking up. no blood transfusion Smoking Status: Former smoker - Past Family History Father Family Medical History: Cancer Additional Family Medical History / Comment(s): colon cancer Medications and Allergies Home Medications Medication Instructions Recorded Confirmed Type Atorvastatin [Lipitor] 40 mg PO HS 07/03/23 03/24/24 History Levothyroxine Sodium [Synthroid] 125 mcg PO DAILY 07/03/23 03/24/24 History Sertraline HCl [Zoloft] 100 mg PO DAILY 07/03/23 03/18/24 History Cholecalciferol (Vitamin D3) 75 mcg PO DAILY 03/18/24 03/18/24 History [Vitamin D3 (3000 Iu)] Esomeprazole Magnesium [NexIUM] 20 mg PO DAILY PRN 03/18/24 03/24/24 History Glucosamine/Chondr Gamino A Sod [Osteo 2 each PO DAILY 03/18/24 03/18/24 History Bi-Flex Caplet] Krill/[place]-3/Dha/Epa/Lipids 1 each PO DAILY 03/18/24 03/18/24 History [Krill Oil 350 mg Softgel] Letrozole 2.5 mg PO DAILY 03/18/24 03/18/24 History Multivitamin [Multivitamins Adult 1 each PO DAILY 03/18/24 03/18/24 History Gummies] Phytosterol/Pantethine [Cholestoff 1 each PO DAILY 03/18/24 03/18/24 History Complete 300Mg Sfgl] Turmeric/Turmeric Root Extract 1 each PO DAILY 03/18/24 03/18/24 History [Turmeric 450-50 mg Capsule] Allergies Allergy/AdvReac Type Severity Reaction Status Date / Time cortisone Allergy Rash/Hives Verified 03/24/24 09:18 lidocaine Allergy Rash/Hives Verified 03/24/24 09:18 Penicillins AdvReac Unknown Verified 03/24/24 09:18 Surgical - Exam Vital Signs Temp Pulse Resp BP Pulse Ox 98.8 F 113 H 18 153/91 95 03/24/24 09:16 03/24/24 09:16 03/24/24 09:16 03/24/24 09:16 03/24/24 09:16 Physical exam: General: Well-developed, well-nourished HEENT: Normocephalic, sclerae nonicteric Abdomen: Nontender, nondistended Extremities: No edema Neuro: Alert and oriented Assessment and Plan (1) Colon cancer screening Narrative/Plan: Will proceed with colonoscopy at this time. Current Visit: Yes Status: Acute Code(s): Z12.11 - ENCOUNTER FOR SCREENING FOR MALIGNANT NEOPLASM OF COLON SNOMED Code(s): 093665278
--- NOTE | 2024-03-24 10:36 | P.PCN ---
Date of Procedure: 03/24/24 Procedure(s) Performed: PREOPERATIVE DIAGNOSIS: Colon cancer screening high risk POSTOPERATIVE DIAGNOSIS: Diverticulosis, lipoma ascending colon PROCEDURE: Colonoscopy ANESTHESIA: MAC SURGEON: Eddie Tran M.D. SPECIMENS: None ENDOSCOPIC PROCEDURE: The patient was placed on the endoscopy table in the left decubitus position. The Olympus colonoscope was inserted into the anus and passed under direct visualization to the proximal ascending colon. Despite numerous attempts were unable to intubate the base of the cecum. I could see the base of the cecum from a distance and no abnormalities were noted. I was not able to visualize the appendiceal orifice. From that point the scope was slowly withdrawn. In the ascending colon a small lipoma was present measuring about 1.5 cm. Base of the cecum. There were no neoplastic inflammatory or polypoid lesions throughout the visualized cecum, ascending, transverse, descending, sigmoid and rectum. There was mild left-sided diverticulosis noted. Digital rectal examination was normal. The patient was taken to the recovery room in stable condition per anesthesia guidelines. RECOMMENDATIONS: Resume diet. Repeat colonoscopy 5 years given family history of colon cancer in father
[2024-03-24 10:56] VITALS: BP 129/85; PULSE 96; RESP 18
== END 2024-03-24 11:22 | disposition home or self-care (01) ==
LOC: ORWHC2ENDO 08:46
PROVIDERS: ATTEND Surgery
DX: Z12.11 Encounter for screening for malignant neoplasm of colon (principal); K57.30 Diverticulosis of large intestine without perforation or abscess without bleeding; D17.79 Benign lipomatous neoplasm of other sites; Z80.0 Family history of malignant neoplasm of digestive organs; E78.5 Hyperlipidemia, unspecified; E07.9 Disorder of thyroid, unspecified; M19.90 Unspecified osteoarthritis, unspecified site; F41.9 Anxiety disorder, unspecified; F32.A Depression, unspecified; Z85.3 Personal history of malignant neoplasm of breast; Z85.828 Personal history of other malignant neoplasm of skin; Z79.899 Other long term (current) drug therapy; Z79.890 Hormone replacement therapy; Z87.891 Personal history of nicotine dependence; Z88.0 Allergy status to penicillin; Z88.8 Allergy status to other drugs, medicaments and biological substances; Z88.4 Allergy status to anesthetic agent
CPT/HCPCS: J2704; G0105

== ENCOUNTER → 2024-06-22 | Outpatient (CLI) | payer MEDICARE ==
--- NOTE | 2024-06-22 10:06 | MM ---
Reason for Exam: Additional evaluation requested from prior study. Last screening mammogram was performed 12 month(s) ago. Patient History: Menarche at age 13. First Full-Term at age 21. Postmenopausal. Breast cancer, right, age 72. Breast cancer, right, age 72. 08/16/2023, Lumpectomy on the Right side. 08/16/2023, Malignant MG pre op needle loc RT on the right side. 07/10/2023, Malignant US biopsy breast VAD RT on the right side. Core Biopsy on the Right side. Core Biopsy on the Right side. 03/20/2001, Benign Stereotactic Core Biopsy on the right side. 03/20/2001, Benign Stereotactic Core Biopsy on the right side. Prior Study Comparison: 05/27/2020 Bilateral Screening Mammogram, [facility]. 06/02/2021 Bilateral Screening Mammogram, [facility]. 06/21/2022 Bilateral MG screening mammo w CAD, [facility]. 06/24/2023 Bilateral MG 3D screening mammo w/cad, [facility]. 07/01/2023 Right MG 3D work up w/cad RT, [facility]. 07/10/2023 Right MG diagnostic mammo RT wo CAD, [facility]. 07/15/2023 Right MG 3D follow up no charge RT, [facility]. Tissue Density: The breasts are heterogeneously dense, which may obscure small masses. Findings: Analyzed By CAD. There are scattered benign parenchymal calcifications bilaterally redemonstrated. There is new posttreatment change with surgical clips and distortion in the right breast posteriorly and in the axilla. There are 2 biopsy clips in the right breast redemonstrated. No concerning new mass or specialists new group of microcysts indication bilaterally. Overall Assessment: Probably benign, BI-RAD 3 Management: Diagnostic Mammogram of the right breast in 6 months. Establishing new baseline in the right breast. Results were given to the patient verbally at the time of exam. Patient should continue monthly self-breast exams. A clinical breast exam by your physician is recommended on an annual basis. This exam should not preclude additional follow-up of suspicious palpable abnormalities. Note on Jaylnee scores and lifetime risk: 1. A Jaylene score greater than 3% is considered moderate risk. If this is the case, consider specialist referral to assess eligibility for a risk reducing agent. 2. If overall lifetime risk for the development of breast cancer is 20% or higher, the patient may qualify for future screening with alternating mammogram and breast MRI. [facility], , 06/22/2024 10:03 AM. Electronically signed and approved by: Jono Soto M.D.
== END | disposition home or self-care (01) ==
LOC: RADMAMWWP 09:15
PROVIDERS: ATTEND Surgery
DX: R92.333 Mammographic heterogeneous density, bilateral breasts (principal); Z85.3 Personal history of malignant neoplasm of breast; Z78.0 Asymptomatic menopausal state
CPT/HCPCS: 77066; G0279; 77062